=== PATIENT | male | born 1955 | race Caucasian/White ===

== ENCOUNTER 2016-08-27 05:31 | Inpatient (IN) | payer BC ==
[~2016-08-27 05:31] MED LIST: ADALAT CC60 M1 PO; ALLOPURINOL300 M1 PO; ASPIRIN325 M3 PO; AUGMENTIN 875-1 EAC2 PO; DIOVAN HCT 3201 EAC1 PO; TOPROL XL200 M1 PO
[2016-08-27 06:12] LABS: BASO % 0.2 % (0-2); EOS % 1.1 % (0-7); EOSINOPHIL ABSOLUTE COUNT 0.1 tho/cmm (0.0-0.7); HCT-HEMATOCRIT 41.5 % (36.0-53.5); HGB-HEMOGLOBIN 14.8 gm/dl (13.5-17.0); IMMATURE GRANULOCYTES ABSOLUTE 0.19 tho/cmm (0-0.03); LYMPH % 21.9 % (20-45); LYMPH ABSOLUTE COUNT 2.1 tho/cmm (0.8-4.5); MCH (MEAN CORPUSCULAR HGB) 33.9 pg (28.0-32.0); MCHC MEAN CORPUSCULAR HGB CONC 35.7 % (32.0-36.0); MEAN PLATELET VOLUME 8.4 cmc (9.4-12.4); MONO % 6.8 % (0-12); MONOCYTE ABSOLUTE COUNT 0.7 tho/cmm (0.0-1.2); NEUTROPHIL ABSOLUTE COUNT 6.5 tho/cmm (1.6-8.0); NEUTROPHIL-AUTOMATED 6.5 tho/cmm (1.6-8.0); PLATELET COUNT 357 tho/cmm (150-450); RED BLOOD COUNT 4.37 mil/cmm (4.40-5.70); RED CELL DISTRIBUTION WIDTH 13.4 % (12.4-16.4); WHITE BLOOD COUNT 9.5 tho/cmm (4.0-10.0)
[2016-08-27 06:18] LABS: PROTHROMBIN TIME 11.6 SECONDS (9.0-13.6)
[2016-08-27 06:24] LABS: ANION GAP 12 mmol/L (0-20); BLOOD UREA NITROGEN 9 mg/dl (6-24); CALCIUM 8.8 mg/dl (8.5-10.5); CARBON DIOXIDE-VENOUS 28 mmol/L (22-32); CHLORIDE 97 mmol/l (96-110); CREATININE 0.95 mg/dl (0.60-1.30); GLUCOSE 109 mg/dL (70-110); POTASSIUM 4.6 mmol/L (3.7-5.1); SODIUM 132 mmol/L (135-145); eGFR VALUE FOR BLACK >90 mL/Min
--- NOTE | 2016-08-28 14:41 | NUR ---
VIRTUAL CARE NOTE: PT RESTING ON BED, STATES DOING OK, HAS BEEN AMBULATED WITH WALKER. PLAN OF DISCHARGE DISCUSSED, PLAN TO HAVE [facility] AT DISCHARGE TO ASSISST WITH WOUND VAC CHANGE. PT DENIES ANY NEEDS OR CONCERNS.
--- NOTE | 2016-08-29 09:55 | NUR ---
VIRTUAL CARE NOTE: ROUNDED WITH PT FAMILY AND WOUND NURSE IN THE ROOM AT THIS TIME PUTTING A WOUND VAC ON PTJ'S RT GREAT TOE WOUND. DISCHARGE PLAN DISCUSSED. FAMILY HAS QUESTIONS ABOUT ORDER FOR A SPECIAL WALKER AND WONDER IF INSURANCE WOULD COVER IT OR NOT, MESSAGE RELATED TO SOCIAL WORK-YNES. DC PLAN TO DC HOME WITH [facility] TO ASSIST WITH WOUND VAC CHANGE AND PT WILL F/U WITH [facility] WEEKLY WITH . PT AND FAMILY DENIES FURTHER QUESTIONS AT THIS TIME.
[2016-08-29] MEDS ORDERED: AUGMENTIN PO (15:03)
[2016-08-29] MEDS ORDERED: NORCO 5-325 TA1 EACH PO (15:05)
== END 2016-08-29 16:30 | disposition home health service (06) | DRG 580 ==
LOC: SHSB 05:31 → ORW 07:16 → 5WD 08:55
PROVIDERS: ADMIT Surgery Vascular Surgery
PROC: 0Y6M0Z9 Detachment at Right Foot, Partial 1st Ray, Open Approach (ICD-10-PCS; principal; 2016-08-27)
DX: L97.519 Non-pressure chronic ulcer of other part of right foot with unspecified severity (principal); M86.8X7 Other osteomyelitis, ankle and foot; I10 Essential (primary) hypertension; Z79.82 Long term (current) use of aspirin; G62.9 Polyneuropathy, unspecified; L84 Corns and callosities; E66.9 Obesity, unspecified; Z68.32 Body mass index [BMI] 32.0-32.9, adult
CPT/HCPCS: J2250; J2270; J2543; J3010; J3370; J7999